=== PATIENT | female | born 2000 ===

== ENCOUNTER 2022-07-11 09:11 | Emergency (ER) | payer OTHER ==
[~2022-07-11] VITALS: Ht 165.1 cm; Wt 70.5 kg
[2022-07-11] MEDS ORDERED: ALBU18HF12 IH (09:19)
[2022-07-11] MEDS ORDERED: ONDANSETRON HCL 4 MG TABLET PO ONE (09:45)
[2022-07-11 10:53] VITALS: BP 124/70
[2022-07-11] MEDS ORDERED: KETOROLAC TROMETHAMINE 60 MG/2 ML VIAL IM ONE (11:15)
== END 2022-07-11 11:41 | disposition home or self-care (01) ==
LOC: EMS 09:14
DX: S09.90XA Unspecified injury of head, initial encounter (principal); R11.2 Nausea with vomiting, unspecified; J45.909 Unspecified asthma, uncomplicated; X58.XXXA Exposure to other specified factors, initial encounter; Y93.89 Activity, other specified; Y92.89 Other specified places as the place of occurrence of the external cause; Y99.8 Other external cause status
CPT/HCPCS: 99285; 70450; 96372; J1885; Q0162